=== PATIENT | male | born 1970 | race Caucasian/White ===

== ENCOUNTER 2017-08-02 06:58 | Inpatient (IN) | payer MEDICARE ==
[~2017-08-02] VITALS: Ht 162.6 cm; Wt 102.5 kg
--- NOTE | ~2017-08-02 | DS ---
PATIENT:KETAN VILLA :72 MEDICAL RECORD: [id number] DISCHARGE SUMMARY ADMISSION DATE: 08/03/17 DISCHARGE DATE: 08/04/17 HISTORY OF PRESENT ILLNESS: Mr. Villa is a 47-year-old male with end-stage renal disease, chronic dialysis in [place] [facility], severe chronic noncompliance with meds, treatment and diet, seen by me 3 weeks ago on dialysis rounds in [place]. Now presents with volume overload and hyperkalemia with evidence of a pericardial effusion on CT of the chest. HOSPITAL COURSE: The patient was emergently dialyzed and his electrolyte and volume issues improved. He had an echocardiogram that revealed cardiomegaly, a small pericardial effusion with chronic mitral abnormalities and aortic, which are followed by cardiology and well known to us. He was otherwise stable and back to baseline at the time of discharge. DISCHARGE DIAGNOSES: 1. Hyperkalemia, requiring emergent dialysis. 2. Hypervolemia, requiring emergent dialysis. 3. Pericardial effusion managed well with dialysis therapy. 4. Hypertension. 5. Poor compliance. PLAN: The patient will be discharged today. He will be in [place] [facility] tomorrow. We will see him on rounds weekly in [place]. He will resume his renal diet. DISCHARGE MEDS: Nephro-Gini 1 daily, Renvela 800 mg t.i.d. with each meal, amlodipine 5 b.i.d., Bystolic 5 daily, Klonopin p.r.n. leg cramps, PhosLo 2 t.i.d., clonidine 0.1 b.i.d., lisinopril 10 b.i.d., and Benadryl 50 mg h.s. p.r.n. TRANSINT:[id number] Voice Confirmation ID: [id number] DOCUMENT ID: [id number] DANIEL WOLFF MD at 0651 CC: [id number] DICTATION DATE: 08/04/17 0754 CREDIT UNION FIELD EXAMINER: 08/04/17 1353 DIS IN 08/04/17 [facility] [address] [place] [address]
--- NOTE | ~2017-08-02 | EC ---
PATIENT:KETAN TRAVIS DATE OF SERVICE: 08/02/17 SEX: M MEDICAL RECORD: [id number] DATE OF : 72 LOCATION:D.M2 D.212 AGE OF PATIENT: 47 ADMISSION DATE: 08/03/17 REFERRING PHYSICIAN: INTERPRETING PHYSICIAN: MIKAELA WHEAT MD ECHOCARDIOGRAM REPORT ECHO CHARGES 4 ECHO COMPLETE CLINICAL DIAGNOSIS: PERICARDIAL EFFUSION ECHOCARDIOGRAPHIC MEASUREMENTS (adult normal given) AC root (d.<3.7cm) 3.9 cm LV Septum d (<1.2 cm> 3.1 cm Valve Excursion 1.8 cm LV Septum (systole) 3.3 cm Left Atria (s.<4.0cm> 5.7 cm LVPW d(<1.2cm) 2.8 cm RV (d.<2.3cm) 4.8 cm LVPW (sytole) 3.0 cm LV diastole(<5.6CM) 4.6 cm MV E-F(>70mm/sec) cm LV systole 2.5 cm LVOT Diameter 1.4 cm MV exc.(>10mm) 1.5 cm Est.ejection fraction (50-75%) % Pericardial Effusion Y DOPPLER: LVIT cm/sec A 108 cm/sec E 176 cm/sec LA cm/sec RVSP 53 mmHg LVOT 198 cm/sec AOP1/2T m/s Asc. Ao 297 cm/sec RVOT 142 cm/sec RA cm/sec PA 147 cm/sec AV Gradient Peak 35.40mmHg AV Mean 16.58mmHg AV Area 1.1 cm MV Gradient Peak 14.05mmHg MV Mean 5.32 mmHg MV Area cm COMMENTS: Resource Conservationist: Melisa MAYA Color Separation Photographer: 4 Dr. Wheat TAPE# PACS DATE OF SERVICE: 08/02/2017 PROCEDURE: Transthoracic echocardiogram. FINDINGS: 1. The left ventricle has severe concentric left ventricular hypertrophy with ejection fraction of 65% to 70%. There is reduced cavity diameter. 2. The RV also has right ventricular hypertrophy with mild diminished RV function. 3. The left atrium is severely dilated. ECHOCARDIOGRAM REPORT [id number] KETAN TRAVIS 4. The aortic valve is shown to have moderate aortic stenosis. 5. The mitral valve has mild mitral regurgitation. 6. There is evidence of mitral annular calcification. There is mild mitral regurgitation and mild mitral stenosis. 7. Tricuspid valve has moderate tricuspid regurgitation with an RVSP of 55 to 60 mmHg. 8. There is a small to mild pericardial effusion without physiology of tamponade. 9. The pulmonic valve has trace pulmonic insufficiency. CONCLUSION: The patient has severe hypertensive heart disease. With the degree of hypertrophy one could consider amyloidosis. TRANSINT:[id number] Voice Confirmation ID: [id number] DOCUMENT ID: [id number] 08/04/2017 Edited to correct date of service, dm. MIKAELA WHEAT MD CC: [id number] DICTATION DATE: 08/03/17924 RACK CLEANER: 08/03/17 1255 DIS IN 08/04/17 [facility] [address] [place] [address]
[~2017-08-02 06:58] MED LIST: BENADRYL50 MG PO; BYSTOLIC10 MG PO; CATAPRES0.1 MG PO; CLONAZEPAM2 MG/TAB PO; CYCLOBENZAPRINE10 MG PO; HYDROCODONE-APA1 TAB PO; LISINOPRIL10 MG PO; LONITEN10 MG PO; LONITEN2.5 MG PO; NORVASC5 MG PO; PHOSLO667 MG PO; PRINIVIL20 MG PO; ROCALTROL0.25 MCG PO; SENSIPAR60 MG PO
[2017-08-02 08:26] LABS: BASOPHILS 0.3 % (0-2); EOSINOPHILS 3.8 % (0-7); HEMATOCRIT 33.6 % (42.0-54.0); IMMATURE GRANULOCYTES 0.2 % (0-5); LYMPHOCYTES 22.1 % (15-50); MCH 31.3 pg (26.0-34.0); MCHC 32.7 g/dL (31.0-37.0); MCV 95.5 fL (80.0-100.0); MEAN PLATELET VOLUME 10.7 fL (7.4-10.4); MONOCYTES 8.1 % (2-11); NEUTROPHILS 65.5 % (40-80); PLATELET COUNT 174 10x3/uL (130-400); RBC 3.52 10x6/uL (4.20-6.10); RDW 14.6 % (11.5-14.5); WBC 6.1 10x3/uL (4.8-10.8)
[2017-08-02 08:38] LABS: ALBUMIN 3.5 g/dL (3.4-5.0); ANION GAP 17.3 mmol/L (8-16); BILIRUBIN - TOTAL 0.52 mg/dL (0.2-1.3); CARBON DIOXIDE 27.7 mmol/L (21.0-32.0); CREATININE - SERUM 11.5 mg/dL (0.6-1.3); PROTEIN - SERUM 7.4 g/dL (6.4-8.2)
[2017-08-02 08:43] LABS: C-REACTIVE PROTEIN 1.9 mg/dL (0.0-0.9)
[2017-08-02 20:00] VITALS: BP 98/53
[2017-08-03] VITALS: BP 120/50
[2017-08-03 02:33] VITALS: BMI 38.2
[2017-08-03 04:00] VITALS: BP 107/68
[2017-08-03 06:27] LABS: BASOPHILS 0.4 % (0-2); EOSINOPHILS 4.2 % (0-7); HEMATOCRIT 34.8 % (42.0-54.0); HEMOGLOBIN 11.5 g/dL (13.5-17.5); IMMATURE GRANULOCYTES 0.1 % (0-5); LYMPHOCYTES 22.5 % (15-50); MCH 31.1 pg (26.0-34.0); MCV 94.1 fL (80.0-100.0); MEAN PLATELET VOLUME 10.7 fL (7.4-10.4); MONOCYTES 10.2 % (2-11); NEUTROPHILS 62.6 % (40-80); RDW 14.4 % (11.5-14.5)
[2017-08-03 06:44] LABS: INR 1.31 (0.85-1.17); PROTIME 15.9 SECONDS (11.6-15.0)
[2017-08-03 06:48] LABS: PLATELET COUNT 209 10x3/uL (130-400)
[2017-08-03 06:52] LABS: CALCIUM 8.6 mg/dL (8.5-10.1); CARBON DIOXIDE 29.6 mmol/L (21.0-32.0); CREATININE - SERUM 9.4 mg/dL (0.6-1.3); PHOSPHOROUS 7.2 mg/dL (2.5-4.9); POTASSIUM - SERUM 5.6 mmol/L (3.5-5.1)
[2017-08-03 11:01] VITALS: BP 127/72
[2017-08-03 13:06] VITALS: Ht 162.6 cm; Wt 102.5 kg
[2017-08-03 13:41] VITALS: BP 118/69
[2017-08-03 17:40] VITALS: BP 162/89
[2017-08-03 19:00] VITALS: BP 140/70
[2017-08-04 04:00] VITALS: BP 163/94
[2017-08-04 06:16] LABS: BASOPHILS 0.3 % (0-2); EOSINOPHILS 3.1 % (0-7); HEMATOCRIT 34.2 % (42.0-54.0); HEMOGLOBIN 11.2 g/dL (13.5-17.5); IMMATURE GRANULOCYTES 0.2 % (0-5); LYMPHOCYTES 23.3 % (15-50); MCH 30.8 pg (26.0-34.0); MCHC 32.7 g/dL (31.0-37.0); MEAN PLATELET VOLUME 11.1 fL (7.4-10.4); MONOCYTES 11.9 % (2-11); NEUTROPHILS 61.2 % (40-80); PLATELET COUNT 221 10x3/uL (130-400); RBC 3.64 10x6/uL (4.20-6.10); RDW 14.2 % (11.5-14.5)
[2017-08-04 06:19] LABS: WBC 8.8 10x3/uL (4.8-10.8)
[2017-08-04 06:47] LABS: ANION GAP 17.8 mmol/L (8-16); CALCIUM 8.6 mg/dL (8.5-10.1); CARBON DIOXIDE 26.7 mmol/L (21.0-32.0); PHOSPHOROUS 7.3 mg/dL (2.5-4.9); POTASSIUM - SERUM 5.5 mmol/L (3.5-5.1)
[2017-08-04 06:51] LABS: CREATININE - SERUM 12.1 mg/dL (0.6-1.3)
[2017-08-04 09:37] VITALS: BP 155/89
== END 2017-08-04 13:30 | disposition home or self-care (01) | DRG 314 ==
LOC: D.ER 06:58 → OBSVTIME 17:30 → D.M2 17:30
PROVIDERS: Emergency Medicine; Internal Medicine Nephrology
PROC: 5A1D70Z Performance of Urinary Filtration, Intermittent, Less than 6 Hours Per Day (ICD-10-PCS; principal; 2017-08-02)
DX: I31.3 Pericardial effusion (noninflammatory) (principal); N18.6 End stage renal disease; I12.0 Hypertensive chronic kidney disease with stage 5 chronic kidney disease or end stage renal disease; E87.5 Hyperkalemia; Z99.2 Dependence on renal dialysis; R59.1 Generalized enlarged lymph nodes; Z91.15 Patient's noncompliance with renal dialysis; E87.70 Fluid overload, unspecified; E83.39 Other disorders of phosphorus metabolism; D63.1 Anemia in chronic kidney disease; Z86.73 Personal history of transient ischemic attack (TIA), and cerebral infarction without residual deficits

== ENCOUNTER 2019-06-19 06:30 | Day surgery (SDC) | payer MEDICARE ==
[~2019-06-19] VITALS: Ht 162.6 cm; Wt 108.0 kg
[2019-06-19 06:59] LABS: BASOPHILS 0.3 % (0-2); EOSINOPHILS 3.2 % (0-7); HEMATOCRIT 43.4 % (42.0-54.0); HEMOGLOBIN 14.7 g/dL (13.5-17.5); IMMATURE GRANULOCYTES 0.3 % (0-5); LYMPHOCYTES 23.6 % (15-50); MCH 32.2 pg (26.0-34.0); MCHC 33.9 g/dL (31.0-37.0); MEAN PLATELET VOLUME 10.5 fL (7.4-10.4); MONOCYTES 8.9 % (2-11); NEUTROPHILS 63.7 % (40-80); PLATELET COUNT 192 10x3/uL (130-400); RBC 4.57 10x6/uL (4.20-6.10); RDW 13.5 % (11.5-14.5)
[2019-06-19 07:23] LABS: ANION GAP 15.6 mmol/L (8-16); CARBON DIOXIDE 29.4 mmol/L (21.0-32.0); CREATININE - SERUM 9.7 mg/dL (0.6-1.3)
[2019-06-19 07:29] LABS: INR 1.27 (0.85-1.17); PROTIME 15.4 SECONDS (11.6-15.0)
[2019-06-19 08:23] VITALS: Ht 162.6 cm; Wt 108.0 kg
--- NOTE | 2019-06-19 13:44 | NUR ---
1250 IV REMOVED AND INSTRUCTIONS GIVEN. 1310 PT DISCHARGED HOME
--- NOTE | 2019-06-19 15:39 | NUR ---
1540 RX FOUND IN BACK OF CHART AND PT WAS DISCHARGED EARLIER. ORDER WRITTEN PER DR JOSEPH WROTE IN ORDERS THAT NO NEW RX,PT TAKES HYDROCODONE AT HOME ALREADY. PT CALLED AND NOTIFIED STATED IT WAS SORE BUT NOT IN PAIN. HE STATED HE WILL TAKE TYLENOL. NOTIFIED PT TO CALL MD IF PAIN INCREASES. PT STATED HE WILL GET HIS PAIN MEDS TOMORROW
--- NOTE | 2019-06-25 16:17 | OP ---
PATIENT NAME: KETAN MORENO MEDICAL RECORD: [id number] :72 LOCATION:[facility] ADMISSION DATE: SURGEON: PHYLLIS JOSEPH MD DATE OF OPERATION: 06/19/2019 REFERRED BY: Daniel Sue MD PREOPERATIVE DIAGNOSES: End-stage renal disease and dependence on hemodialysis and left axillary lymph adenopathy or mass. POSTOPERATIVE DIAGNOSES: End-stage renal disease and dependence on hemodialysis and left axillary lymph adenopathy or mass. OPERATION PERFORMED: Excisional left axillary lymph node biopsy. SURGEON: Phyllis Joseph MD ANESTHESIA: General per OYSTER PLANTER with LMA. PREOPERATIVE NOTE: Mr. Moreno is a 49-year-old gentleman, on chronic hemodialysis with a left radiocephalic AV fistula. He has presented with a painless left axillary mass about 3 cm in diameter complex on ultrasound and firm and mobile to palpation. He is brought to the operating room at this time for its excision. DESCRIPTION OF PROCEDURE: Under general anesthesia in supine position, the patient was prepped and draped in a sterile manner. A transverse axillary incision was made and subcutaneous tissues divided with electrocautery. The mass was easily located and it was dissected circumferentially with electrocautery and removed from the axilla. I cut the lesion in 2 and noted that it was a soft, bravo apparent enlarged lymph node without evidence of pus and no inflammatory reaction within it or around it, visibly. The larger portion was sent for permanent section histology and a smaller portion sent for culture. The wound was irrigated with Ancef/gentamicin solution and infiltrated with 0.25% Marcaine with epinephrine. The wound was closed with interrupted inverted 3-0 Vicryl and then running intracuticular 4-0 Stratafix and Dermabond glue. It was dressed with Maxorb Ag, Tegaderm, and Cavilon skin prep and the patient was awakened from his anesthetic and taken to the recovery room. He will be discharged to home today and return to see me in my office next Tuesday. He is not given a new prescription as he takes hydrocodone 10 mg tablets at home already for preexisting illnesses. He is encouraged to use an ice pack off and on today and over the next several days p.r.n. for pain and discomfort. He is to resume activities as tolerated. He is to keep the original dressing intact and dry and clean until he sees me Omar. TRANSINT:[id number] Voice Confirmation ID: [id number] DOCUMENT ID: [id number] OPERATIVE REPORT [id number] KETAN MORENO JAMES MD at 1617 CC: DANIEL SUE MD [id number] DICTATION DATE: 06/19/19 1116 SENIOR EDUCATION SPECIALIST: 06/19/19 1251 [facility] 06/19/19 [place] [id number] [place] [id number]
== END 2019-06-19 13:10 | disposition home or self-care (01) ==
LOC: D.OPS 06:30
PROVIDERS: ATTEND Internal Medicine Nephrology
DX: N18.6 End stage renal disease (principal); Z99.2 Dependence on renal dialysis; R59.9 Enlarged lymph nodes, unspecified; I12.0 Hypertensive chronic kidney disease with stage 5 chronic kidney disease or end stage renal disease; E78.5 Hyperlipidemia, unspecified; E83.39 Other disorders of phosphorus metabolism